=== PATIENT | male | born 1970 | race Caucasian/White ===

== ENCOUNTER 2019-03-05 07:16 | Outpatient (CLI) | payer BC ==
[2019-03-05 14:06] LABS: #Eosinphils 0.2 thou/uL (0.0-0.7); #Lymphocytes 2.8 thou/uL (1.20-3.40); #Monocytes 0.6 thou/uL (0.11-0.59); %Basophils 0.7 % (0.0-1.0); %Eosinophils 2.5 % (0.0-10.0); %Lymphocytes 42.2 % (21.0-51.0); %Monocytes 9.7 % (0.0-10.0); %Neutrophils 44.8 % (42.0-75.0); Hemoglobin 15.5 g/dL (14.0-18.0); Mean Corpuscular HGB CONC 33.5 g/dL (32.0-36.0); Mean Corpuscular Hemoglobin 31.6 pg (27.0-31.0); Mean Corpuscular Volume 94.4 fL (78.0-98.0); Mean Platelet Volume 7.5 fL (7.4-10.4); Platelet Count 225 thou/uL (130-400); RBC Distribution Width 12.5 % (11.5-14.5); Red Blood Cell (RBC) Count 4.89 mill/uL (4.70-6.10); White Blood Cell (WBC) Count 6.6 thou/uL (4.8-10.8)
== END 2019-03-05 07:17 | disposition home or self-care (01) ==
LOC: LABBT 07:16
PROVIDERS: ATTEND Orthopaedic Surgery
DX: Z01.812 Encounter for preprocedural laboratory examination (principal); S83.242A Other tear of medial meniscus, current injury, left knee, initial encounter
CPT/HCPCS: 85025

== ENCOUNTER 2019-03-06 06:57 | Day surgery (SDC) | payer BC ==
[2019-03-05 12:49] VITALS: BMI 27.5
[2019-03-06] MEDS ORDERED: Clindamycin/D5W 600 mg/50 ml Premix Bag ONE (07:35)
[2019-03-06] MEDS ORDERED: Lidocaine 1% (PF) 30 ML VIAL ONE (09:19)
[2019-03-06] MEDS ORDERED: Lidocaine 1% w/Epinephrine 1:100K 20 ML VIAL ONE (09:19)
[2019-03-06] MEDS ORDERED: Fentanyl 100 MCG/2 ML VIAL ONE (09:31)
[2019-03-06] MEDS ORDERED: Ondansetron PF 4 MG/2 ML Vial ONE (14:29)
[2019-03-06] MEDS ORDERED: Ketorolac Tromethamine 30 MG/ML VIAL ONE (14:29)
[2019-03-06] MEDS ORDERED: PROPOFOL 200 MG/20 ML VIAL ONE (14:29)
[2019-03-06] MEDS ORDERED: Lidocaine 1% PF 5 ML VIAL ONE (14:29)
[2019-03-06] MEDS ORDERED: ePHEDrine/0.9% NaCl/PF SYRINGE 50 mg/10 ml ONE (14:29)
--- NOTE | 2019-03-07 11:42 | OP ---
DATE OF PROCEDURE: 03/06/2019 PREOPERATIVE DIAGNOSES: 1. Ankylosing spondylitis. 2. Left knee early arthritic changes. 3. Medial meniscus tear. POSTOPERATIVE DIAGNOSES: 1. Grade 4 changes in the medial tibial plateau. 2. Grade 3 changes medial femoral condyle. 3. Grade 2-3 changes in the lateral tibial plateau. 4. Grade 3 changes, trochlear groove and patella. 5. Radial tear of the medial meniscus, near the insertion of the posterior root. PROCEDURE: Debridement and shaving three compartments with medial menisectomy MANAGER ED: None. ANESTHESIOLOGIST: Natanael. ANESTHESIA: The patient received an LMA with 25 mL of 1% lidocaine with epi and preprocedure 25 mL of 1% lidocaine plain. TOURNIQUET TIME: 28 minutes at 300 mmHg. ANTIBIOTICS: Clindamycin 600. COMPLICATIONS: None. HISTORY OF PRESENT ILLNESS: Mr. Rehman is a pleasant 48-year-old male, who presented with a medial meniscus tear, he stepped on his boat and had immediate pain. The patient is on disease modifying agents for ankylosing spondylitis, which he is going to off for about 2 months. The patient had pain with mechanical motion of his right knee. I discussed the MRI showed some tricompartmental changes, which may be more severe than I would evaluate arthroscopically. I did debride his meniscus as well as the debride and shave any loose bodies throughout the knee. I discussed the risks and benefits of surgery to include pain, scar, bleeding, infection, damage to vital structures, decreased range of motion and strength, need for further surgeries to include total knee arthroplasty, blood clots, and loss of life or limb. The patient understood the risks and benefits and elected to proceed. DESCRIPTION OF PROCEDURE: Time-out was performed, designating the patient's left lower extremity as the operative site based on site, consents, and marking. After time-out, the patient's left lower extremity was prepped and draped in sterile fashion. Tourniquet was brought up and left for 28 minutes. Lateral portal was placed. We excised the fat pad, which was thickened, and difficult to get through. Once we were able through it, it was also bleeding, I used cautery to control some of the bleeding. I visualized of the patellofemoral joint and medial and lateral gutters. I looked at lateral compartment. Patellar changes were grade 3 on the trochlea, 2-3 on the patella. The lateral plateau with 2-3 changes. No loose bodies. No tear in the lateral meniscus. The medial compartment had complete loss of cartilage on the medial tibial plateau and grade 3 changes on the femur as a radial tear which I bit back and nibbled to stable remnant. I gently passed my shaver over of the medial femoral condyle, the trochlear groove, and then lateral plateau. I washed in the patellar pouch for any potential loose bodies. I then completed my scope. I closed with 3-0 nylon, injected lidocaine with epi into the joint preprocedure and plain lidocaine postprocedure. The patient will begin weightbearing as tolerated given the patient' s severe degenerative changes. I will follow up with him in about 10 to 12 days. Job ID: [id number] [id number]
== END 2019-03-06 12:55 | disposition home or self-care (01) ==
LOC: SDC 06:57
PROVIDERS: ATTEND Orthopaedic Surgery
PROC: 0SBD4ZZ Excision of Left Knee Joint, Percutaneous Endoscopic Approach (ICD-10-PCS; principal; 2019-03-06)
DX: S83.242A Other tear of medial meniscus, current injury, left knee, initial encounter (principal); M45.9 Ankylosing spondylitis of unspecified sites in spine; Z88.0 Allergy status to penicillin; Z88.8 Allergy status to other drugs, medicaments and biological substances; I10 Essential (primary) hypertension; E78.5 Hyperlipidemia, unspecified; Z79.82 Long term (current) use of aspirin; Z79.899 Other long term (current) drug therapy
CPT/HCPCS: J1885; J2001; J2405; J2704; J3010; J3490

== ENCOUNTER 2020-07-30 19:00 | Outpatient (CLI) | payer BC | END 2020-07-30 19:01 | disposition home or self-care (01) | LOC: SLEEPLAB 19:00 | PROVIDERS: ATTEND Family Medicine | DX: G47.33 Obstructive sleep apnea (adult) (pediatric) (principal); R53.83 Other fatigue; K21.9 Gastro-esophageal reflux disease without esophagitis; R06.83 Snoring; I10 Essential (primary) hypertension; G47.10 Hypersomnia, unspecified; G47.00 Insomnia, unspecified | CPT/HCPCS: 95810 ==

== ENCOUNTER 2020-10-31 19:00 | Outpatient (CLI) | payer BC | END 2020-10-31 19:01 | disposition home or self-care (01) | LOC: SLEEPLAB 19:00 | PROVIDERS: ATTEND Family Medicine | DX: G47.33 Obstructive sleep apnea (adult) (pediatric) (principal); R53.83 Other fatigue; R09.89 Other specified symptoms and signs involving the circulatory and respiratory systems; K21.9 Gastro-esophageal reflux disease without esophagitis; R06.83 Snoring; G47.10 Hypersomnia, unspecified; I10 Essential (primary) hypertension; E66.9 Obesity, unspecified; Z68.26 Body mass index [BMI] 26.0-26.9, adult | CPT/HCPCS: 95811 ==

== ENCOUNTER 2023-06-01 08:51 | Outpatient (CLI) | payer BC | END 2023-06-01 08:52 | disposition home or self-care (01) | LOC: BICRAD 08:51 | PROVIDERS: ATTEND Nurse Practitioner Family | DX: M25.562 Pain in left knee (principal); M17.12 Unilateral primary osteoarthritis, left knee; M25.462 Effusion, left knee ==

== ENCOUNTER 2024-10-03 09:22 | Outpatient (CLI) | payer BC | END 2024-10-03 09:23 | disposition home or self-care (01) | LOC: BICRAD 09:22 | PROVIDERS: ATTEND Nurse Practitioner Family | DX: M25.562 Pain in left knee (principal); M17.12 Unilateral primary osteoarthritis, left knee ==